=== PATIENT | male | born 1940 | race Caucasian/White ===

== ENCOUNTER 2020-03-13 17:00 | Observation (INO) | payer MEDICARE, SELFPAY ==
--- NOTE | 2020-03-13 | EEG_ITS ---
This is a 16-channel EEG with an EKG lead. The patient is reported awake and confused during the tracing. Background EEG rhythm is low amplitude, mostly in theta range with no obvious asymmetry or paroxysmal tendency. Photic stimulation does not produce any significant abnormality. Hyperventilation is not performed. Cardiac lead revealed bradycardia. No definite sharp wave spikes or paroxysmal tendencies noted. IMPRESSION: Unremarkable EEG. MD MAYLIN Lane/JOLIE / [id number]
--- NOTE | 2020-03-13 | ECG_ITS ---
Test Reason : REPEAT Blood Pressure : / mmHG Vent. Rate : 053 BPM Atrial Rate : 053 BPM P-R Int : 166 ms QRS Dur : 072 ms QT Int : 470 ms P-R-T Axes : 065 009 016 degrees QTc Int : 441 ms Sinus bradycardia Low voltage QRS Nonspecific ST abnormality Abnormal ECG When compared with ECG of 13-MAR-2020 17:24, No significant changes seen Referred By: Robert Arredondo Electronically Signed By:NORMA GONGORA
--- NOTE | ~2020-03-13 | CT_ITS ---
EXAMINATION: CT HEAD WITHOUT CONTRAST CLINICAL INFORMATION: Altered mental status. COMPARISON: 12/08/2016 TECHNIQUE: Contiguous axial imaging was performed from the skull base to vertex without intravenous administration of contrast. This CT examination was performed using dose optimization techniques as appropriate, variously including the following: *Automated exposure control *Adjustment of mA and/or kV according to patient size (this includes techniques or standardized protocols for targeted exams where dose is matched to indication/reason for exam; i.e. extremities or head) *Use of iterative reconstruction technique DLP: 789 mGy-cm FINDINGS: There is no evidence of acute intracranial hemorrhage or territorial infarction. No abnormal mass effect or midline shift is seen. Lynch to white matter differentiation is well preserved. No extra-axial fluid collections are identified. There is generalized brain parenchymal volume loss with commensurate prominence of the ventricular system, cortical sulci and fissures with interval progression since prior. Mild background chronic white matter small vessel ischemic changes. The osseous structures and soft tissues are normal. The mastoid air cells and visualized portions of the paranasal sinuses are well aerated. CT/CT head/brain wo con IMPRESSION: * No acute intracranial pathology. * Marked progressive generalized brain parenchymal volume loss and mild chronic white matter small vessel ischemic changes.
--- NOTE | ~2020-03-13 | XR_ITS ---
EXAMINATION: XR CHEST CLINICAL INFORMATION: Altered mental status COMPARISON: Chest radiograph 12/08/2016 TECHNIQUE: Frontal view of the chest was obtained. FINDINGS: Normal color and mediastinal silhouette. Mild hypoinflation of the lungs. No focal consolidation. No pleural effusion or pneumothorax. No acute osseous abnormality. XR/XR chest 1V IMPRESSION: No acute disease within the chest.
--- NOTE | 2020-03-13 17:02 | ED_ITS ---
HPI - Altered Mental Status General Chief Complaint: Syncope Stated Complaint: Episode of unresponsiveness Time Seen by Provider: 03/13/20 17:01 Source: EMS Mode of arrival: EMS Limitations: no limitations History of Present Illness HPI narrative: Patient with history of dementia Parkinson disease brought by EMS for period of unresponsiveness when he was sitting on the toilet. Etiology is not very clear patient did not move his bowels at this time he is awake alert communicating slowly without any focal deficit. Patient does have a similar history in 2017 when he was brought to the hospital had a MRI CT scan and carotid Doppler negative for any acute ischemic stroke no history of seizures in the past patient denies any chest pain or palpitation complaint: confusion and decreased responsiveness Onset (ago): minute(s) Related Data Home Medications Medication Instructions Recorded Confirmed B12 500 mg PO DAILY 03/13/20 03/13/20 aspirin 81 mg PO DAILY 03/13/20 03/13/20 atorvastatin 20 mg PO BEDTIME 03/13/20 03/13/20 carbidopa-levodopa 1 tab PO QID 03/13/20 03/13/20 donepezil 20 mg PO BEDTIME 03/13/20 03/13/20 gabapentin 500 mg PO BEDTIME 03/13/20 03/13/20 melatonin 3 mg PO BEDTIME 03/13/20 03/13/20 memantine 5 mg PO BID 03/13/20 03/13/20 sertraline 1 tab PO DAILY 03/13/20 03/13/20 sertraline 50 mg PO DAILY 03/13/20 03/13/20 Allergies Allergy/AdvReac Type Severity Reaction Status Date / Time No Known Allergies Allergy Unverified 10/23/19 14:59 [No Known Allergies*] Review of Systems Review of Systems: Yes Unobtainable due to mental status (Confusion) Neurologic: Reports confusion Psychiatric: Psychiatric: Reports confusion [facility] Past Medical History Medical History Dementia Dyslipidemia Parkinsons disease Psoriasis Renal stone Social History Social History Alcohol intake: unknown Smoking Status: Unknown if ever smoked Use of substances other than those prescribed or required for medical reasons: Unable to respond Advance Directives: No Advance Directives Information Provided: No Physical Exam Vital Signs: Vital Signs: Last Vital Signs Temp 98.5 F 03/13/20 22:05 Pulse 55 03/13/20 22:05 Resp 13 03/13/20 22:05 BP 144/44 H 03/13/20 22:05 Pulse Ox 97 03/13/20 22:05 Body Mass Index 24.4 Const: General: comfortable, no acute distress, confusion and poor hygiene Nutritional Appearance: well nourished Orientation/consciousness: oriented to person, oriented to place and confusion HENMT: Head: Yes normocephalic and Yes atraumatic Ears: hearing grossly n ormal bilaterally General nose exam: Normal external nose present Face and sinus: Yes normal facial exam Mouth: Normal oral and palatal mucosa present Eyes: General: appearance normal, both eyes and all related structures Neck: Neck: Yes normal visual inspection and Yes no meningeal signs Chest: Chest palpation & inspection: normal palpation of entire chest wall Resp: Effort & Inspection: normal respiratory effort Auscultation: clear to auscultation bilaterally, no crackles, no rales and no rhonchi Cardio: Jugular venous distension: no JVD Rate: regular rate Rhythm: regular rhythm Heart sounds: S1 normal heart sound present and S2 normal heart sound present Peripheral pulses: Peripheral pulses 2+ throughout GI: Inspection: Yes normal to inspection Palpation (GI): Soft to palpation, nontender and no guarding Percussion: Yes normal to percussion Auscultation: normal bowel sounds : General: Yes no CVA tenderness Back/Spine/Pelvis: Back: no CVA tenderness Thoracic/Lumbar Spine: No thoracic spinal tenderness and No lumbar spinal tenderness Skin: General skin exam: no rashes or lesions noted Neuro: General: oriented to person, oriented to place, tone normal, moves all extremities, no meningeal signs, no focal motor deficits, CN's II-XI intact bilaterally and confusion Extrem: General: Yes normal to inspection, Yes no pedal edema and Yes no calf tenderness MDM - Altered Mental Status MDM Narrative Medical decision making narrative: Patient's syncope episode etiology is not very clear patient has similar episode in the past last episode was 2017 when workup was negative also workup showed she has a UTI with no signs of sepsis at this time will admit patient for syncope and UTI will give IV Rocephin CT scan head negative for acute severe Differential Diagnosis Differential diagnosis: Likely altered mental status and hyponatremia Medical Records Attestation: I reviewed the patient's medical records. Lab Data Attestation: I reviewed the patient's lab results. Result diagrams: 03/13/20 17:45 03/13/20 17:45 Labs: Lab Results 03/13/20 03/13/20 03/13/20 Range/Units 17:15 17:45 17:45 WBC 4.8 (4.8-10.8) X10*3/uL RBC 3.18 L (4.60-5.80) X10*6/uL Hgb 11.5 L (14.0-18.0) g/dl Hct 35.3 L (42-52) % MCV 111.0 H (80-98) fL MCH 36.2 H (27.0-33.0) pg MCHC 32.6 (31.0-36.0) g/dl RDW 15.6 (11.0-16.0) % Plt Count 533 H (160-400) X10*3/uL MPV 10.4 (9.4-12.4) fL Immature Gran % (Auto) 0.2 (0.0-0.4) % Neut % (Auto) 73.0 (45-73) % Lymph % (Auto) 18.2 L (20-40) % [place] % (Auto) 7.3 (2-11) % Eos % (Auto) 1.3 (0-4) % Baso % (Auto) 0.0 (0-2) % Lymph # (Auto) 0.9 L (1.2-4.9) X10*3/uL [place] # (Auto) 0.4 (0.1-1.2) X10*3/uL Eos # (Auto) 0.1 (0.0-0.4) X10*3/uL Baso # (Auto) 0.0 (0.0-0.2) X10*3/uL Abs Immat Gran (auto) 0.01 (0.00-0.03) X10*3/uL Absolute Neuts (auto) 3.5 (2.0-8.3) X10*3/uL Absolute Nucleated RBC 0.000 (0.0-0.012) X10*3/uL Nucleated RBC % (auto) 0.0 (0.0-0.2) /100WBC PT 13.5 H (10.8-13.0) SEC INR 1.1 (0.9-1.1) APTT 28.2 (24.1-38.0) SEC Sodium (135-145) mmol/L Potassium (3.3-5.1) mmol/L Chloride (96-108) mmol/L Carbon Dioxide (22-29) mmol/L Anion Gap (12-20) BUN (9-16) mg/dL Creatinine (0.5-1.4) mg/dL Estim Creat Clear Calc Estimated GFR POC Glucose 142 H (60-115) mg/dL Random Glucose (60-115) mg/dL Lactic Acid (0.5-2.0) mmol/L Calcium (8.4-10.2) mg/dL Total Bilirubin (0.0-1.0) mg/dL Direct Bilirubin (0.0-0.5) mg/dL AST (5-37) U/L ALT (0-40) U/L Alkaline Phosphatase (39-117) U/L Troponin I High Sens (<3.5-35.0) ng/L Total Protein (6.5-8.0) g/dL Albumin (3.5-5.0) g/dL Urine Color Urine Appearance Urine pH (5.0-8.0) Ur Specific [place] (1.005-1.025) Urine Protein (NEG-TRACE) MG/DL Urine Glucose (UA) (NEG) MG/DL Urine Ketones (NEG) MG/DL Urine Blood (NEG) Urine Nitrite (NEG) Ur Leukocyte Esterase (NEG) Urine RBC (0) /HPF Urine WBC (0-4) /HPF Ur Squamous Epith Cells /LPF Urine Bacteria /LPF Urine Mucus /LPF COVID-19 (KASIE) (Negative) COVID-19 Clin Com 03/13/20 03/13/20 03/13/20 Range/Units 17:45 17:45 17:45 WBC (4.8-10.8) X10*3/uL RBC (4.60-5.80) X10*6/uL Hgb (14.0-18.0) g/dl Hct (42-52) % MCV (80-98) fL MCH (27.0-33.0) pg MCHC (31.0-36.0) g/dl RDW (11.0-16.0) % Plt Count (160-400) X10*3/uL MPV (9.4-12.4) fL Immature Gran % (Auto) (0.0-0.4) % Neut % (Auto) (45-73) % Lymph % (Auto) (20-40) % [place] % (Auto) (2-11) % Eos % (Auto) (0-4) % Baso % (Auto) (0-2) % Lymph # (Auto) (1.2-4.9) X10*3/uL [place] # (Auto) (0.1-1.2) X10*3/uL Eos # (Auto) (0.0-0.4) X10*3/uL Baso # (Auto) (0.0-0.2) X10*3/uL Abs Immat Gran (auto) (0.00-0.03) X10*3/uL Absolute Neuts (auto) (2.0-8.3) X10*3/uL Absolute Nucleated RBC (0.0-0.012) X10*3/uL Nucleated RBC % (auto) (0.0-0.2) /100WBC PT (10.8-13.0) SEC INR (0.9-1.1) APTT (24.1-38.0) SEC Sodium 141 (135-145) mmol/L Potassium 4.7 (3.3-5.1) mmol/L Chloride 104 (96-108) mmol/L Carbon Dioxide 26 (22-29) mmol/L Anion Gap 16 (12-20) BUN 19 H (9-16) mg/dL Creatinine 0.97 (0.5-1.4) mg/dL Estim Creat Clear Calc 62.7 Estimated GFR > 60 POC Glucose (60-115) mg/dL Random Glucose 141 H (60-115) mg/dL Lactic Acid (0.5-2.0) mmol/L Calcium 8.1 L (8.4-10.2) mg/dL Total Bilirubin 0.4 (0.0-1.0) mg/dL Direct Bilirubin 0.2 (0.0-0.5) mg/dL AST 21 (5-37) U/L ALT 16 (0-40) U/L Alkaline Phosphatase 113 (39-117) U/L Troponin I High Sens < 3.5 (<3.5-35.0) ng/L Total Protein 6.2 L (6.5-8.0) g/dL Albumin 3.7 (3.5-5.0) g/dL Urine Color Urine Appearance Urine pH (5.0-8.0) Ur Specific [place] (1.005-1.025) Urine Protein (NEG-TRACE) MG/DL Urine Glucose (UA) (NEG) MG/DL Urine Ketones (NEG) MG/DL Urine Blood (NEG) Urine Nitrite (NEG) Ur Leukocyte Esterase (NEG) Urine RBC (0) /HPF Urine WBC (0-4) /HPF Ur Squamous Epith Cells /LPF Urine Bacteria /LPF Urine Mucus /LPF COVID-19 (KASIE) Negative (Negative) COVID-19 Clin Com See Note 03/13/20 03/13/20 Range/Units 17:59 19:04 WBC (4.8-10.8) X10*3/uL RBC (4.60-5.80) X10*6/uL Hgb (14.0-18.0) g/dl Hct (42-52) % MCV (80-98) fL MCH (27.0-33.0) pg MCHC (31.0-36.0) g/dl RDW (11.0-16.0) % Plt Count (160-400) X10*3/uL MPV (9.4-12.4) fL Immature Gran % (Auto) (0.0-0.4) % Neut % (Auto) (45-73) % Lymph % (Auto) (20-40) % [place] % (Auto) (2-11) % Eos % (Auto) (0-4) % Baso % (Auto) (0-2) % Lymph # (Auto) (1.2-4.9) X10*3/uL [place] # (Auto) (0.1-1.2) X10*3/uL Eos # (Auto) (0.0-0.4) X10*3/uL Baso # (Auto) (0.0-0.2) X10*3/uL Abs Immat Gran (auto) (0.00-0.03) X10*3/uL Absolute Neuts (auto) (2.0-8.3) X10*3/uL Absolute Nucleated RBC (0.0-0.012) X10*3/uL Nucleated RBC % (auto) (0.0-0.2) /100WBC PT (10.8-13.0) SEC INR (0.9-1.1) APTT (24.1-38.0) SEC Sodium (135-145) mmol/L Potassium (3.3-5.1) mmol/L Chloride (96-108) mmol/L Carbon Dioxide (22-29) mmol/L Anion Gap (12-20) BUN (9-16) mg/dL Creatinine (0.5-1.4) mg/dL Estim Creat Clear Calc Estimated GFR POC Glucose (60-115) mg/dL Random Glucose (60-115) mg/dL Lactic Acid 1.6 (0.5-2.0) mmol/L Calcium (8.4-10.2) mg/dL Total Bilirubin (0.0-1.0) mg/dL Direct Bilirubin (0.0-0.5) mg/dL AST (5-37) U/L ALT (0-40) U/L Alkaline Phosphatase (39-117) U/L Troponin I High Sens (<3.5-35.0) ng/L Total Protein (6.5-8.0) g/dL Albumin (3.5-5.0) g/dL Urine Color YELLOW Urine Appearance CLOUDY Urine pH 6.0 (5.0-8.0) Ur Specific [place] >= 1.030 H (1.005-1.025) Urine Protein 2+ H (NEG-TRACE) MG/DL Urine Glucose (UA) NEG (NEG) MG/DL Urine Ketones 5 (NEG) MG/DL Urine Blood TRACE (NEG) Urine Nitrite POS H (NEG) Ur Leukocyte Esterase TRACE H (NEG) Urine RBC 0-2 (0) /HPF Urine WBC 30-49 H (0-4) /HPF Ur Squamous Epith Cells 1+ /LPF Urine Bacteria 1+ /LPF Urine Mucus 3+ /LPF COVID-19 (KASIE) (Negative) COVID-19 Clin Com ECG Data ECG #1: Attestation: I personally reviewed and interpreted this ECG as follows: Interpretation: Sinus bradycardia heart rate 53 beats per minute nonspecific ST T wave changes normal intervals no acute ischemia Discharge Plan Discharge Clinical Impression: Syncope Qualifiers: Syncope type: unspecified Qualified Code(s): R55 - Syncope and collapse UTI (urinary tract infection) Qualifiers: Urinary tract infection type: acute cystitis Hematuria presence: without hematuria Qualified Code(s): N30.00 - Acute cystitis without hematuria Patient Disposition: Admitted As Inpatient
[2020-03-13 17:07] VITALS: BP 102/62; BP 122/48; PULSE 54; PULSE 58; RESP 18; O2SAT 90; O2SAT 93; BMI 24.4
--- NOTE | 2020-03-13 17:11 | ECG_ITS ---
Test Reason : SYNCOPY Blood Pressure : / mmHG Vent. Rate : 050 BPM Atrial Rate : 049 BPM P-R Int : 000 ms QRS Dur : 086 ms QT Int : 504 ms P-R-T Axes : 000 009 028 degrees QTc Int : 459 ms Baseline artifact Likely sinus rhythm Nonspecific ST abnormality Abnormal ECG When compared with ECG of 08-DEC-2016 10:11, No significant changes seen Referred By: Beltran Louis Electronically Signed By:NORMA GONGORA
[2020-03-13 17:15] VITALS: BP 122/48; PULSE 52; RESP 16; TEMP 36.3; O2SAT 95
[2020-03-13 17:24] VITALS: PULSE 50; O2SAT 95
[2020-03-13 17:26] LABS: Glucose, Whole Blood 142 mg/dL (60-115)
[2020-03-13] MEDS: 0.9 % Sodium Chloride 1,000 ML 999 ML IVCONT (17:30)
[2020-03-13 17:53] LABS: MANUAL DIFF FLAG NO
[2020-03-13 17:54] LABS: Eosinophils Absolute Auto 0.1 X10*3/uL (0.0-0.4); Eosinophils Percent Auto 1.3 % (0-4); Hematocrit 35.3 % (42-52); Hemoglobin 11.5 g/dl (14.0-18.0); Imm Gran Abs Auto 0.01 X10*3/uL (0.00-0.03); Imm Gran Pct Auto 0.2 % (0.0-0.4); Lymphocytes Absolute Auto 0.9 X10*3/uL (1.2-4.9); Lymphocytes Percent Auto 18.2 % (20-40); Mean Corpuscular HGB Conc 32.6 g/dl (31.0-36.0); Mean Corpuscular Hemoglobin 36.2 pg (27.0-33.0); Mean Platelet Volume 10.4 fL (9.4-12.4); Monocytes Absolute Auto 0.4 X10*3/uL (0.1-1.2); Monocytes Percent Auto 7.3 % (2-11); Neutrophils Absolute Auto 3.5 X10*3/uL (2.0-8.3); Platelet Count 533 X10*3/uL (160-400); Red Blood Count 3.18 X10*6/uL (4.60-5.80); Red Cell Distribution Width 15.6 % (11.0-16.0); White Blood Count 4.8 X10*3/uL (4.8-10.8)
[2020-03-13 18:02] LABS: INTERNATIONAL NORM RATIO 1.1 (0.9-1.1); Prothrombin Time 13.5 SEC (10.8-13.0)
[2020-03-13 18:03] VITALS: BP 132/72; PULSE 60; RESP 16; TEMP 36.4; O2SAT 96
[2020-03-13 18:04] LABS: Glucose Urine UA NEG (NEG); Leukocyte Esterase Urine TRACE (NEG); Nitrite Urine POS (NEG); Specific Gravity - Urine >= 1.030 (1.005-1.025); UACC Culture Trigger YES; Urine Blood TRACE (NEG); Urine Ketones 5 MG/DL (NEG); Urine Protein 2+ MG/DL (NEG-TRACE)
[2020-03-13 18:04] LABS: Partial Thromboplastin Time 28.2 SEC (24.1-38.0)
[2020-03-13 18:05] LABS: Appearance Urine CLOUDY; Color Urine YELLOW
[2020-03-13 18:10] LABS: COVID-19 Test Negative (Negative)
[2020-03-13 18:13] LABS: Bacteria Urine 1+ /LPF; Mucus Urine 3+ /LPF; RBC Urine 0-2 /HPF (0); Squamous Epithelial Cell Urine 1+ /LPF; WBC Urine 30-49 /HPF (0-4)
[2020-03-13 18:17] LABS: Alanine Aminotransferase 16 U/L (0-40); Albumin Level 3.7 g/dL (3.5-5.0); Alkaline Phosphatase 113 U/L (39-117); Anion Gap 16 (12-20); Aspartate Amino Transferase 21 U/L (5-37); Bilirubin Direct 0.2 mg/dL (0.0-0.5); Bilirubin Total 0.4 mg/dL (0.0-1.0); Blood Urea Nitrogen 19 mg/dL (9-16); Calcium 8.1 mg/dL (8.4-10.2); Carbon Dioxide 26 mmol/L (22-29); Chloride 104 mmol/L (96-108); Creatinine Clr Calc Pharmacy 62.7; Estimated Glomerular Filt Rate > 60; Glucose Random 141 mg/dL (60-115); Potassium 4.7 mmol/L (3.3-5.1); Sodium 141 mmol/L (135-145); Total Protein 6.2 g/dL (6.5-8.0)
[2020-03-13 18:21] LABS: Troponin-I High Sensitivity < 3.5 ng/L (<3.5-35.0)
[2020-03-13] MEDS: cefTRIAXone sodium 1 GM in 0.9 % Sodium Chloride 50 ML IV (19:13)
[2020-03-13 19:39] LABS: Lactic Acid 1.6 mmol/L (0.5-2.0)
[2020-03-13 20:20] VITALS: BP 123/49; PULSE 63; RESP 14; O2SAT 97
--- NOTE | 2020-03-13 21:23 | P.HPHOSP_ITS ---
History of Present Illness Date of Service: 03/13/20 Chief Complaint: Syncope [age] old male with a past medical history of, dementia, Parkinson's disease psoriasis history of calculi, remote history of syncope, presented the hospital today with a chief complaint of unresponsive episode Most of the history obtained from the patient's and son. Family reported that patient was good until yesterday and today he had increased generalized weakness and when they tried to take him to the bathroom for bowel movement patient had an episode of brief unresponsiveness he was drooling from his mouth eyes were rolling back; had baseline body shakes from his Parkinson. Denied any fever chills. Mentioned that patient usually oriented to self. Family denies any fall Denies any chest pain palpitations lightheadedness or dizziness. Denies any nausea vomiting or diarrhea. Denies any focal weakness. Review of all other systems is negative except mentioned above ER course: Per ER team patient exam was nonfocal; muscle could neck exam was benign; CT head showed no acute findings. EKG was nonischemic. Troponin was negative. [facility] Medical History Dementia Dyslipidemia Parkinsons disease Psoriasis Renal stone Social History Alcohol intake: unknown Smoking Status: Unknown if ever smoked Use of substances other than those prescribed or required for medical reasons: Unable to respond Advance Directives: No Advance Directives Information Provided: No Meds Allergies Allergy/AdvReac Type Severity Reaction Status Date / Time No Known Allergies Allergy Unverified 10/23/19 14:59 [No Known Allergies*] Home Medications Medication Instructions Recorded Confirmed Type B12 500 mg PO DAILY 03/13/20 03/13/20 History aspirin 81 mg PO DAILY 03/13/20 03/13/20 History atorvastatin 20 mg PO BEDTIME 03/13/20 03/13/20 History carbidopa-levodopa 1 tab PO QID 03/13/20 03/13/20 History donepezil 20 mg PO BEDTIME 03/13/20 03/13/20 History gabapentin 500 mg PO BEDTIME 03/13/20 03/13/20 History melatonin 3 mg PO BEDTIME 03/13/20 03/13/20 History memantine 5 mg PO BID 03/13/20 03/13/20 History sertraline 1 tab PO DAILY 03/13/20 03/13/20 History sertraline 50 mg PO DAILY 03/13/20 03/13/20 History Physical Exam Vital Signs and Narrative: Vital Signs: Last Vital Signs Temp 97.6 F 03/13/20 18:03 Pulse 63 03/13/20 20:20 Resp 14 03/13/20 20:20 BP 123/49 L 03/13/20 20:20 Pulse Ox 97 03/13/20 20:20 Body Mass Index 24.4 Gen: Appears be in no acute distress HEENT: NCAT, Moist mucosa. Pulmonary: Vesicular breath sounds, fair air entry CVS: Normal S1-S2 Abdomen: BS+, Soft, Nontender Extremities: Warm well perfused Neuro: Alert and awake. Grossly nonfocal Results Labs CBC and Chem 7: 03/13/20 17:45 03/13/20 17:45 Labs: Laboratory Results - last 24 hr 03/13/20 03/13/20 03/13/20 17:15 17:45 17:45 MCV 111.0 H MCH 36.2 H MCHC 32.6 RDW 15.6 Plt Count 533 H MPV 10.4 Immature Gran % (Auto) 0.2 Neut % (Auto) 73.0 Lymph % (Auto) 18.2 L [place] % (Auto) 7.3 Eos % (Auto) 1.3 Baso % (Auto) 0.0 Lymph # (Auto) 0.9 L [place] # (Auto) 0.4 Eos # (Auto) 0.1 Baso # (Auto) 0.0 Abs Immat Gran (auto) 0.01 Absolute Neuts (auto) 3.5 Absolute Nucleated RBC 0.000 Nucleated RBC % (auto) 0.0 PT 13.5 H INR 1.1 APTT 28.2 Anion Gap Estim Creat Clear Calc Estimated GFR POC Glucose 142 H Random Glucose Lactic Acid Calcium Total Bilirubin Direct Bilirubin AST ALT Alkaline Phosphatase Troponin I High Sens Total Protein Albumin Urine Color Urine Appearance Urine pH Ur Specific [place] Urine Protein Urine Glucose (UA) Urine Ketones Urine Blood Urine Nitrite Ur Leukocyte Esterase Urine RBC Urine WBC Ur Squamous Epith Cells Urine Bacteria Urine Mucus COVID-19 (KASIE) COVID-19 Clin Com 03/13/20 03/13/20 03/13/20 17:45 17:45 17:45 MCV MCH MCHC RDW Plt Count MPV Immature Gran % (Auto) Neut % (Auto) Lymph % (Auto) [place] % (Auto) Eos % (Auto) Baso % (Auto) Lymph # (Auto) [place] # (Auto) Eos # (Auto) Baso # (Auto) Abs Immat Gran (auto) Absolute Neuts (auto) Absolute Nucleated RBC Nucleated RBC % (auto) PT INR APTT Anion Gap 16 Estim Creat Clear Calc 62.7 Estimated GFR > 60 POC Glucose Random Glucose 141 H Lactic Acid Calcium 8.1 L Total Bilirubin 0.4 Direct Bilirubin 0.2 AST 21 ALT 16 Alkaline Phosphatase 113 Troponin I High Sens < 3.5 Total Protein 6.2 L Albumin 3.7 Urine Color Urine Appearance Urine pH Ur Specific [place] Urine Protein Urine Glucose (UA) Urine Ketones Urine Blood Urine Nitrite Ur Leukocyte Esterase Urine RBC Urine WBC Ur Squamous Epith Cells Urine Bacteria Urine Mucus COVID-19 (KASIE) Negative COVID-19 Clin Com See Note 03/13/20 03/13/20 17:59 19:04 MCV MCH MCHC RDW Plt Count MPV Immature Gran % (Auto) Neut % (Auto) Lymph % (Auto) [place] % (Auto) Eos % (Auto) Baso % (Auto) Lymph # (Auto) [place] # (Auto) Eos # (Auto) Baso # (Auto) Abs Immat Gran (auto) Absolute Neuts (auto) Absolute Nucleated RBC Nucleated RBC % (auto) PT INR APTT Anion Gap Estim Creat Clear Calc Estimated GFR POC Glucose Random Glucose Lactic Acid 1.6 Calcium Total Bilirubin Direct Bilirubin AST ALT Alkaline Phosphatase Troponin I High Sens Total Protein Albumin Urine Color YELLOW Urine Appearance CLOUDY Urine pH 6.0 Ur Specific [place] >= 1.030 H Urine Protein 2+ H Urine Glucose (UA) NEG Urine Ketones 5 Urine Blood TRACE Urine Nitrite POS H Ur Leukocyte Esterase TRACE H Urine RBC 0-2 Urine WBC 30-49 H Ur Squamous Epith Cells 1+ Urine Bacteria 1+ Urine Mucus 3+ COVID-19 (KASIE) COVID-19 Clin Com Imaging Radiologist's Impressions: Impressions Chest X-Ray 03/13/20 17:11 IMPRESSION: No acute disease within the chest. Head CT 03/13/20 17:12 IMPRESSION: * No acute intracranial pathology. * Marked progressive generalized brain parenchymal volume loss and mild chronic white matter small vessel ischemic changes. Assessment and Plan (1) Syncope: Status: Acute 79-year-old male with a past medical history hyperlipidemia, dementia, Parkinson's disease, depression presented to the hospital with a chief complaint of unresponsive episode. Noted to have UTI. Unresponsive episode: Patient has drooling from his mouth and eyes rolling back during the episode. Syncope versus seizure. Exam nonfocal. CT head showed no acute findings. Fall precautions. PT/OT. Will also obtain an echocardiogram. Patient had similar episode in the past-was seen by Neurology-will re-consult Neurology for further recommendations. EKG was nonischemic, troponin was negative; follow-up troponin pending Eeg orthostatic vitals UTI: Continue ceftriaxone. Follow up cultures. Parkinson's disease: Continue home carbidopa levodopa History of dementia:: Current mental status at baseline off oriented to self. Continue home donepezil and memantine. History of depression: Continue home sertraline History of hyperlipidemia: Continue statin Ambulation: Patient is mostly wheelchair-bound as per the patient's and he intermittently walks with the help of support. DVT prophylaxis: SCD boots Diet: Speech and swallow eval Full code-spoke to the patient's family
[2020-03-13 22:05] VITALS: BP 144/44; PULSE 55; RESP 13; TEMP 36.9; O2SAT 97
[2020-03-13 22:48] LABS: Troponin-I High Sensitivity < 3.5 ng/L (<3.5-35.0)
[2020-03-14] VITALS (9 sets, daily range): BP systolic 106–147; BP diastolic 42–91; PULSE 54–73; RESP 14–18; TEMP 36.3–36.9; O2SAT 92–99
--- NOTE | 2020-03-14 01:04 | PC.NURSE ---
pt incontinent of urine, complete bed change and Diego. jadon care completed and pt repositioned on the ride side. bed is lowered, call madison in reach and fall red socks on. Pt is a full assist
--- NOTE | 2020-03-14 05:48 | PC.NURSE ---
Pt incontinent of urine, completed bed change and attire. pt repositioned and condom cath placed
[2020-03-14 07:24] LABS: MANUAL DIFF FLAG NO
[2020-03-14 07:25] LABS: Basophils Percent Auto 0.4 % (0-2); Eosinophils Percent Auto 0.6 % (0-4); Hematocrit 34.3 % (42-52); Hemoglobin 11.2 g/dl (14.0-18.0); Imm Gran Abs Auto 0.02 X10*3/uL (0.00-0.03); Imm Gran Pct Auto 0.4 % (0.0-0.4); Lymphocytes Absolute Auto 1.1 X10*3/uL (1.2-4.9); Lymphocytes Percent Auto 20.4 % (20-40); Mean Corpuscular HGB Conc 32.7 g/dl (31.0-36.0); Mean Corpuscular Hemoglobin 35.7 pg (27.0-33.0); Mean Corpuscular Volume 109.2 fL (80-98); Mean Platelet Volume 10.5 fL (9.4-12.4); Monocytes Absolute Auto 0.5 X10*3/uL (0.1-1.2); Monocytes Percent Auto 8.6 % (2-11); Neutrophils Absolute Auto 3.7 X10*3/uL (2.0-8.3); Neutrophils Percent Auto 69.6 % (45-73); Platelet Count 468 X10*3/uL (160-400); Red Blood Count 3.14 X10*6/uL (4.60-5.80); Red Cell Distribution Width 15.7 % (11.0-16.0); White Blood Count 5.3 X10*3/uL (4.8-10.8)
[2020-03-14 08:02] LABS: Anion Gap 14 (12-20); Blood Urea Nitrogen 14 mg/dL (9-16); Calcium 8.2 mg/dL (8.4-10.2); Carbon Dioxide 26 mmol/L (22-29); Chloride 107 mmol/L (96-108); Creatinine Clr Calc Pharmacy 84.5; Estimated Glomerular Filt Rate > 60; Glucose Random 105 mg/dL (60-115); Potassium 4.5 mmol/L (3.3-5.1); Sodium 142 mmol/L (135-145)
--- NOTE | 2020-03-14 08:08 | PC.NURSE ---
report taken from chen chin pt appears to be sleeping in bed at this time, rr even/unlabored. breakfast tray at bedside. wctm.
--- NOTE | 2020-03-14 09:31 | HO.PM.IMPN ---
Subjective Subjective Date of Service: 03/14/20 Interval History: Patient seen and examined at bedside, Patient remains confused Review of Systems Review of Systems: Yes Unobtainable due to mental condition (Dementia) Neurologic Neurologic: Reports confusion Psychiatric Psychiatric: Reports confusion Physical Exam Vital Signs: Vital Signs: Last Vital Signs Temp 98.4 F 03/14/20 08:19 Pulse 60 03/14/20 08:19 Resp 18 03/14/20 08:19 BP 118/47 L 03/14/20 08:19 Pulse Ox 98 03/14/20 08:19 Body Mass Index 24.4 Const: General: comfortable, no acute distress, confusion and poor hygiene Orientation/consciousness: confusion Resp: Effort & Inspection: normal respiratory effort Auscultation: clear to auscultation bilaterally, no crackles, no rales and no rhonchi Cardio: Jugular venous distension: no JVD Rate: regular rate Rhythm: regular rhythm Heart sounds: S1 normal heart sound present and S2 normal heart sound present Peripheral pulses: Peripheral pulses 2+ throughout GI: Inspection: Yes normal to inspection Palpation (GI): Soft to palpation, nontender and no guarding Percussion: Yes normal to percussion Auscultation: normal bowel sounds : General: Yes no CVA tenderness Back/Spine/Pelvis: Back: no CVA tenderness Thoracic/Lumbar Spine: No thoracic spinal tenderness and No lumbar spinal tenderness Skin: General skin exam: no rashes or lesions noted Neuro: General: moves all extremities, no focal motor deficits and confusion Extrem: General: Yes normal to inspection, Yes no pedal edema and Yes no calf tenderness Objective Data Current Medications Generic Name Dose Route Start Last Admin Trade Name Eva PRN Reason Stop Dose Admin Aspirin 81 mg 03/14/20 09:00 Aspirin Enteric Coated 81 Mg Tablet. PO DAILY [facility] Atorvastatin Calcium 20 mg 03/14/20 21:00 Atorvastatin Calcium 20 Mg Tablet PO BEDTIME MUNA Carbidopa/Levodopa 1 tab 03/14/20 09:00 Carbidopa/Levodopa 25/100 Tablet PO QID [facility] Cyanocobalamin 500 mcg 03/14/20 09:00 Cyanocobalamin (Vitamin B-12) 500 Mcg Tablet PO DAILY [facility] Donepezil HCl 20 mg 03/14/20 21:00 Donepezil Hcl 5 Mg Tablet PO BEDTIME [facility] Gabapentin 400 mg 03/14/20 21:00 Gabapentin 400 Mg Capsule PO BEDTIME [facility] Gabapentin 100 mg 03/14/20 21:00 Gabapentin 100 Mg Capsule PO BEDTIME MUNA Ceftriaxone Sodium 1 gm/ 50 mls @ 100 mls/hr 03/14/20 19:00 Sodium Chloride IV Q24H MUNA Melatonin 3 mg 03/14/20 21:00 Melatonin 3 Mg Tablet PO BEDTIME MUNA Memantine 5 mg 03/14/20 09:00 Memantine Hcl 5 Mg Tablet PO BID [facility] Sertraline HCl 50 mg 03/14/20 09:00 Sertraline Hcl 50 Mg Tablet PO DAILY [facility]NA Sodium Chloride 3 ml 03/14/20 00:00 03/14/20 08:24 0.9 % Sodium Chloride Flush 3 Ml Syringe IVFLUSH Not Given QSHIFT [facility] Labs CBC & Chem 7: 03/14/20 07:14 03/14/20 07:15 Microbiology Microbiology Results: Microbiology 03/13/20 17:58 Urine clean catch - Santiago Catheter Urine Culture - Preliminary No growth to date. Assessment and Plan (1) Syncope: Status: Acute Assessment and Plan: 79-year-old male with a past medical history hyperlipidemia, dementia, Parkinson's disease, depression presented to the hospital with a chief complaint of unresponsive episode. Noted to have UTI. Unresponsive episode rule out seizure versus syncope CT head showed no acute findings. Neurology consult pending Monitor on telemetry Will check orthostatic vitals PT evaluation UTI: Continue ceftriaxone Follow up cultures. Parkinson's disease Continue carbidopa levodopa History of dementia Continue donepezil and memantine History of depression Continue home sertraline History of hyperlipidemia: Continue statin DVT prophylaxis: SCD boots Ambulation: Patient is mostly wheelchair-bound as per the patient's and he intermittently walks with the help of support.
[2020-03-14] MEDS: Memantine HCl 5 MG TABLET PO ×2 (09:35→20:09)
[2020-03-14] MEDS: Aspirin Enteric Coated 81 MG TABLET.DR PO (09:35)
[2020-03-14] MEDS: Carbidopa/Levodopa 25/100 TABLET 1 TAB PO ×4 (09:35→20:09)
[2020-03-14] MEDS: Sertraline HCL 50 MG TABLET PO (09:35)
--- NOTE | 2020-03-14 09:47 | PC.NURSE ---
morning meds given to pt. per pt son, pt takes medications crushed in apple sauce. pt able to tolerate one sip of water to wet mouth, tolerating multiple spoonfuls of pudding with medication. pt given another sip of water, and spit it out on pt chest. wet durga changed. pt encouraged to keep eating pudding but unsuccessful. wctm.
--- NOTE | 2020-03-14 10:25 | P.CNNE_ITS ---
History of Present Illness Data of Consult Service Date: 03/14/20 Primary Care Provider: Unknown Physician 79 years old man with underlying history of dementia and parkinsonism was brought to hospital with an episode of unresponsiveness. He was unable to provide any meaningful history. Apparently history was obtained from his family who stated that while they were trying to take him to bilateral he had an episode of unresponsiveness with eyes rolling over and drooling. Review of Systems Review of Systems: Unable to answer questions for review of system PMFSH Past Medical History Medical History Dementia Dyslipidemia Parkinsons disease Psoriasis Renal stone Social History Social History Alcohol intake: unknown Smoking Status: Unknown if ever smoked Use of substances other than those prescribed or required for medical reasons: Unable to respond Advance Directives: No Advance Directives Information Provided: No Meds Allergies Allergy/AdvReac Type Severity Reaction Status Date / Time No Known Allergies Allergy Unverified 10/23/19 14:59 [No Known Allergies*] Home Medications Medication Instructions Recorded Confirmed Type B12 500 mg PO DAILY 03/13/20 03/13/20 History aspirin 81 mg PO DAILY 03/13/20 03/13/20 History atorvastatin 20 mg PO BEDTIME 03/13/20 03/13/20 History carbidopa-levodopa 1 tab PO QID 03/13/20 03/13/20 History donepezil 20 mg PO BEDTIME 03/13/20 03/13/20 History gabapentin 500 mg PO BEDTIME 03/13/20 03/13/20 History melatonin 3 mg PO BEDTIME 03/13/20 03/13/20 History memantine 5 mg PO BID 03/13/20 03/13/20 History sertraline 1 tab PO DAILY 03/13/20 03/13/20 History sertraline 50 mg PO DAILY 03/13/20 03/13/20 History Physical Exam Vital Signs: Vital Signs: Last Vital Signs Temp 98.4 F 03/14/20 08:19 Pulse 60 03/14/20 08:19 Resp 18 03/14/20 08:19 BP 118/47 L 03/14/20 08:19 Pulse Ox 98 03/14/20 08:19 Body Mass Index 24.4 He was somewhat drowsy but able to make an eye contact and was mumbling and occasionally followed a command but generally speaking it did not. He could not tell me where he was and what was going on and why he was here. His speech was soft and dysarthric. There is no gaze deviation. Visual vanegas were difficult to determine. Face was pendulous but seems symmetrical. Formal strength examination was not possible. Deep tender reflexes were absent. He seemed to have left arm weakness. Results Labs CBC & Chem 7: 03/14/20 07:14 03/14/20 07:15 Labs: Short CBC 03/13/20 03/14/20 Range/Units 17:45 07:14 WBC 4.8 5.3 (4.8-10.8) X10*3/uL Hgb 11.5 L 11.2 L (14.0-18.0) g/dl Hct 35.3 L 34.3 L (42-52) % Plt Count 533 H 468 H (160-400) X10*3/uL BMP 03/13/20 03/14/20 17:45 07:15 Sodium 141 142 Potassium 4.7 4.5 Chloride 104 107 Carbon Dioxide 26 26 BUN 19 H 14 Creatinine 0.97 0.72 Calcium 8.1 L 8.2 L Liver Function 03/13/20 Range/Units 17:45 Total Bilirubin 0.4 (0.0-1.0) mg/dL Direct Bilirubin 0.2 (0.0-0.5) mg/dL AST 21 (5-37) U/L ALT 16 (0-40) U/L Alkaline Phosphatase 113 (39-117) U/L Albumin 3.7 (3.5-5.0) g/dL Urine 03/13/20 Range/Units 17:59 Urine Color YELLOW Urine Appearance CLOUDY Urine pH 6.0 (5.0-8.0) Ur Specific [place] >= 1.030 H (1.005-1.025) Urine Protein 2+ H (NEG-TRACE) MG/DL Urine Glucose (UA) NEG (NEG) MG/DL His non contrasted CT revealed quite severe diffuse cerebral central cortical atrophy. Microbiology Microbiology Results: Microbiology 03/13/20 17:58 Urine clean catch - Santiago Catheter Urine Culture - Preliminary No growth to date. Assessment and Plan (1) Syncope: Qualifiers: Syncope type: unspecified Qualified Code(s): R55 - Syncope and collapse Status: Acute Unclear etiology of an episode of unresponsiveness which might have been triggered by some mild infection but seizure disorder was common in this type of patient. At this time and electroencephalogram is recommended for evaluation. (2) Dementia with parkinsonism: Status: Acute He has quite significant cerebral atrophy resulting in significant dementia with some parkinsonian features. Patient's in this type of situation usually do not respond well to medicines. I would recommend medicines only that would make any significant difference and otherwise comfort measures.
--- NOTE | 2020-03-14 12:15 | PC.NURSE ---
Compression stocking applied, pt resting in bed, no apparent distress. Requested hospital bed. Pending bed assignment.
--- NOTE | 2020-03-14 13:18 | PC.NURSE ---
20g L AC accidentally dislodge while attempting to change jloop- pt b/l arms wrapped in warm towels and will attempt another IV.
[2020-03-14] MEDS: 0.9 % Sodium Chloride Flush 3 ML SYRINGE IVFLUSH (15:27)
--- NOTE | 2020-03-14 16:39 | MHC.HEMONC ---
Patient repositioned and barrier cream applied. Head of bed elevated. Vitals taken. No signs or symptoms of distress.
--- NOTE | 2020-03-14 17:00 | PC.NURSE ---
x1 attempt to give report- awaiting callback
--- NOTE | 2020-03-14 18:15 | MHC.HEMONC ---
Report given to S3 nurse Dasha. Dasha stated no questions or concerns at this time.
[2020-03-14] MEDS: Gabapentin 400 MG CAPSULE PO (20:09)
[2020-03-14] MEDS: Atorvastatin Calcium 20 MG TABLET PO (20:09)
[2020-03-14] MEDS: 0.9 % Sodium Chloride 1,000 ML 75 ML IVCONT (20:09)
[2020-03-14] MEDS: Donepezil HCl 5 MG TABLET 20 MG PO (20:10)
[2020-03-14] MEDS: Gabapentin 100 MG CAPSULE PO (20:10)
[2020-03-14] MEDS: cefTRIAXone sodium 1 GM in 0.9 % Sodium Chloride 50 ML IV (20:11)
[2020-03-14] MEDS: Melatonin 3 MG TABLET PO (21:06)
[2020-03-15] VITALS (7 sets, daily range): BP systolic 116–154; BP diastolic 37–91; PULSE 47–93; RESP 16–18; TEMP 36.3–36.9; O2SAT 92–97
[2020-03-15] MEDS: 0.9 % Sodium Chloride Flush 3 ML SYRINGE IVFLUSH ×4 (00:03→23:41)
--- NOTE | 2020-03-15 07:35 | CA_ITS ---
Transthoracic Echocardiogram Patient (Last, First, Middle): Steevn Montano, Gender: Male Date of : 1940 Age: 79 Procedure Date: 03/15/2020 Procedure Type: Transthoracic Echocardiogram Location: S3E Height: 175.26 cm Weight: 74.84 kg BSA: 1.90 m2 Heart Rate: bpm BP: 154 / 65 mmHg Automotive Maintenance Technician: RAPHAEL Referring MD: Robert Arredondo MD Symptoms: Syncope Study Quality: Fair ECG Rhythm: Sinus Conclusions: - The left ventricular systolic function is hyperdynamic. The visually estimated ejection fraction is >70%. - No obvious valvular pathology seen on this study. Findings Left Ventricle Normal left ventricular cavity size. There is normal left ventricular wall thickness. The left ventricular systolic function is hyperdynamic. The visually estimated ejection fraction is >70%. There is no evidence of regional wall motion abnormalities. Diastolic function is normal for age. Right Ventricle Normal right ventricular cavity size and systolic function. Atria Both atria are normal in size. Aortic Valve There is a normal trileaflet aortic valve. There is no aortic valve stenosis. There is no aortic valve regurgitation. Mitral Valve The mitral valve appears normal. There is trace mitral valve regurgitation. There is no mitral valve stenosis. Pulmonic Valve The pulmonic valve was not well visualized. Tricuspid Valve There is trace tricuspid valve regurgitation. Tricuspid regurgitation envelope is inadequate for calculation of right ventricular systolic pressure. Great Vessels The aortic annulus, sinuses of valsalva, and asc aorta are normal in size. Venous The inferior vena cava was not well visualized. Pericardium/Pleural There is no evidence of pericardial effusion. Prior Study Comparison No prior study available for comparison. Recommendations, Care & Conclusions No obvious valvular pathology seen on this study. Measurements 2D Linear Measurements IVSd: 0.94 0.6-0.9/0.6-1.0 cm LVIDd: 4.94 3.9-5.3/4.2-5.9 cm LVIDd Index: 2.60 2.4-3.2/2.2-3.1 cm/m2 LVIDs: 2.65 2.0-3.6 cm LVPWd: 1.05 0.7-1.1 cm Ao Root: 3.20 2.1-3.5 cm LV Mass: 221.05 67-162/88-224 g LV Mass Index: 116.34 43-95/49-115 g/m2 LVOT Diam: 2.10 3.0+(-)1.3 cm 2D Systolic Function EF 4C: 75.10 >55% Mitral Valve MV Pk E: 0.71 MV PK A: 0.43 MV Decel Time: 204.00 E/A: 1.60 E'Lateral: 8.27 E'Medial: 7.40 E/E' Med: 9.60 E/E' Lat: 8.60 PHT: 60.00 MVA PHT: 3.67 Decel Loíza: 3.47 Aortic Valve AoV Pk Swapnil: 1.14 AoV Pk Grad: 5.00 LVOT LVOT Pk Swapnil: 1.10 LVOT Mn Swapnil: 0.72 LVOT VTI: 0.27 LVOT Pk Grad: 5.00 LVOT Mn Grad: 2.00 LVOT Diam: 2.10 LVOT Area: 3.46 Diastolic Function MV Pk E: 0.71 MV Pk A: 0.43 E/A: 1.60 E'Medial: 7.40 E/E' Med: 9.60 E' Laterial: 8.27 E/E' Lat: 8.60 Great Vessels Aorta Ao Root-2D: 3.20 2.0-3.7 cm Ao Asc: 3.10 2.1-3.4 cm Updated in Other Vendor System with Status of Final Saurav Roman MD electronically signed on 03/15/2020 11:57:22 AM with status of Final
--- NOTE | 2020-03-15 08:48 | MHC.CM.PN ---
pt lives c his in their home. his primarily cares for patient , also a son. pt is primarily WC bound , uses a walker for minimal ambulation. dc plan is most likely return home possibly c vna. rehab potential is not maximized secondary to WC use status, hence creating a question of skilling for STR needs. a PT eval will help c addressing this question. will transport if home. cm to cont. to follow.
[2020-03-15 09:05] LABS: MANUAL DIFF FLAG NO
[2020-03-15 09:13] LABS: Hematocrit 31.4 % (42-52); Hemoglobin 10.2 g/dl (14.0-18.0); Imm Gran Abs Auto 0.01 X10*3/uL (0.00-0.03); Imm Gran Pct Auto 0.2 % (0.0-0.4); Lymphocytes Absolute Auto 0.8 X10*3/uL (1.2-4.9); Lymphocytes Percent Auto 20.5 % (20-40); Mean Corpuscular HGB Conc 32.5 g/dl (31.0-36.0); Mean Corpuscular Hemoglobin 36.2 pg (27.0-33.0); Mean Platelet Volume 10.6 fL (9.4-12.4); Monocytes Absolute Auto 0.3 X10*3/uL (0.1-1.2); Monocytes Percent Auto 7.6 % (2-11); Neutrophils Absolute Auto 2.9 X10*3/uL (2.0-8.3); Neutrophils Percent Auto 70.7 % (45-73); Platelet Count 458 X10*3/uL (160-400); Red Blood Count 2.82 X10*6/uL (4.60-5.80); Red Cell Distribution Width 15.9 % (11.0-16.0); White Blood Count 4.1 X10*3/uL (4.8-10.8)
[2020-03-15 09:18] LABS: Mean Corpuscular Volume 111.3 fL (80-98)
[2020-03-15] MEDS: Cyanocobalamin (Vitamin B-12) 500 MCG TABLET PO (09:33)
[2020-03-15] MEDS: Aspirin Enteric Coated 81 MG TABLET.DR PO (09:33)
[2020-03-15] MEDS: Carbidopa/Levodopa 25/100 TABLET 1 TAB PO ×4 (09:33→20:59)
[2020-03-15] MEDS: Memantine HCl 5 MG TABLET PO ×2 (09:33→20:59)
[2020-03-15] MEDS: Sertraline HCL 50 MG TABLET PO (09:33)
[2020-03-15] MEDS: 0.9 % Sodium Chloride 1,000 ML 75 ML IVCONT ×2 (09:34→23:47)
[2020-03-15 09:43] LABS: Anion Gap 13 (12-20); Blood Urea Nitrogen 15 mg/dL (9-16); Calcium 8.4 mg/dL (8.4-10.2); Carbon Dioxide 27 mmol/L (22-29); Chloride 105 mmol/L (96-108); Creatinine Clr Calc Pharmacy 81.1; Estimated Glomerular Filt Rate > 60; Glucose Random 106 mg/dL (60-115); Sodium 140 mmol/L (135-145)
--- NOTE | 2020-03-15 16:36 | P.PNIM_ITS ---
Subjective Subjective Date of Service: 03/15/20 Interval History: Patient seen and examined at bedside, Patient remains confused Neurologic Neurologic: Reports confusion Psychiatric Psychiatric: Reports confusion Physical Exam Vital Signs: Vital Signs: Last Vital Signs Temp 97.5 F 03/15/20 15:27 Pulse 47 L 03/15/20 15:27 Resp 18 03/15/20 15:27 BP 126/91 H 03/15/20 15:27 Pulse Ox 92 03/15/20 15:27 Body Mass Index 24.4 Const: General: comfortable, no acute distress, confusion and poor hygiene Nutritional Appearance: well nourished Orientation/consciousness: confusion HENMT: Head: Yes normocephalic and Yes atraumatic Ears: hearing grossly n ormal bilaterally General nose exam: Normal external nose present Face and sinus: Yes normal facial exam Mouth: Normal oral and palatal mucosa present Eyes: General: appearance normal, both eyes and all related structures Neck: Neck: Yes normal visual inspection Chest: Chest palpation & inspection: normal palpation of entire chest wall Resp: Effort & Inspection: normal respiratory effort Auscultation: clear to auscultation bilaterally, no crackles, no rales and no rhonchi Cardio: Jugular venous distension: no JVD Rate: regular rate Rhythm: regular rhythm Heart sounds: S1 normal heart sound present and S2 normal heart sound present Peripheral pulses: Peripheral pulses 2+ throughout GI: Inspection: Yes normal to inspection Palpation (GI): Soft to palpation, nontender and no guarding Percussion: Yes normal to percussion Auscultation: normal bowel sounds : General: Yes no CVA tenderness Back/Spine/Pelvis: Back: no CVA tenderness Thoracic/Lumbar Spine: No thoracic spinal tenderness and No lumbar spinal tenderness Skin: General skin exam: no rashes or lesions noted Neuro: General: moves all extremities, no focal motor deficits and confusion Extrem: General: Yes normal to inspection, Yes no pedal edema and Yes no calf tenderness Objective Data Current Medications Generic Name Dose Route Start Last Admin Trade Name Maxxq PRN Reason Stop Dose Admin Aspirin 81 mg 03/14/20 09:00 03/15/20 09:33 Aspirin Enteric Coated 81 Mg Tablet. PO 81 mg DAILY MUNA Administration Atorvastatin Calcium 20 mg 03/14/20 21:00 03/14/20 20:09 Atorvastatin Calcium 20 Mg Tablet PO 20 mg BEDTIME MUNA Administration Carbidopa/Levodopa 1 tab 03/14/20 09:00 03/15/20 12:22 Carbidopa/Levodopa 25/100 Tablet PO 1 tab QID MUNA Administration Cyanocobalamin 500 mcg 03/14/20 09:00 03/15/20 09:33 Cyanocobalamin (Vitamin B-12) 500 Mcg Tablet PO 500 mcg DAILY MUNA Administration Donepezil HCl 20 mg 03/14/20 21:00 03/14/20 20:10 Donepezil Hcl 5 Mg Tablet PO 20 mg BEDTIME [facility]NA Administration Gabapentin 400 mg 03/14/20 21:00 03/14/20 20:09 Gabapentin 400 Mg Capsule PO 400 mg BEDTIME MUNA Administration Gabapentin 100 mg 03/14/20 21:00 03/14/20 20:10 Gabapentin 100 Mg Capsule PO 100 mg BEDTIME MUNA Administration Ceftriaxone Sodium 1 gm/ 50 mls @ 100 mls/hr 03/14/20 19:00 03/14/20 21:00 Sodium Chloride IV Infused Q24H MUNA Infusion Sodium Chloride 1,000 mls @ 75 mls/hr 03/14/20 17:00 03/15/20 09:34 Ns IVCONT 75 mls/hr .[id number] MUNA Administration Melatonin 3 mg 03/14/20 21:00 03/14/20 21:06 Melatonin 3 Mg Tablet PO 3 mg BEDTIME MUNA Administration Memantine 5 mg 03/14/20 09:00 03/15/20 09:33 Memantine Hcl 5 Mg Tablet PO 5 mg BID MUNA Administration Sertraline HCl 50 mg 03/14/20 09:00 03/15/20 09:33 Sertraline Hcl 50 Mg Tablet PO 50 mg DAILY MUNA Administration Sodium Chloride 3 ml 03/14/20 00:00 03/15/20 16:10 0.9 % Sodium Chloride Flush 3 Ml Syringe IVFLUSH 3 ml QSHIFT MUNA Administration Labs CBC & Chem 7: 03/15/20 08:26 03/15/20 08:26 Microbiology Microbiology Results: Microbiology 03/13/20 17:58 Urine clean catch - Santiago Catheter Urine Culture - Preliminary Pseudomonas species 03/13/20 19:04 Blood - Venous Blood Culture - Preliminary No growth after 24 hours. 03/13/20 19:04 Blood - Venous Blood Culture - Preliminary No growth after 24 hours. Assessment and Plan (1) Syncope: Status: Acute Assessment and Plan: 79-year-old male with a past medical history hyperlipidemia, dementia, Parkinson's disease, depression presented to the hospital with a chief complaint of unresponsive episode. Noted to have UTI. Unresponsive episode rule out seizure versus syncope CT head showed no acute findings. Neurology consulted recommended EEG EEG and echo pending PT evaluation UTI: Continue ceftriaxone urine culture preliminary Pseudomonas Parkinson's disease Continue carbidopa levodopa History of dementia Continue donepezil and memantine History of depression Continue home sertraline History of hyperlipidemia: Continue statin DVT prophylaxis: SCD boots Ambulation: Patient is mostly wheelchair-bound as per the patient's and he intermittently walks with the help of support.
[2020-03-15] MEDS: cefTRIAXone sodium 1 GM in 0.9 % Sodium Chloride 50 ML IV (19:47)
[2020-03-15] MEDS: Atorvastatin Calcium 20 MG TABLET PO (20:59)
[2020-03-15] MEDS: Gabapentin 400 MG CAPSULE PO (20:59)
[2020-03-15] MEDS: Gabapentin 100 MG CAPSULE PO (20:59)
[2020-03-15] MEDS: Melatonin 3 MG TABLET PO (20:59)
[2020-03-15] MEDS: Donepezil HCl 5 MG TABLET 20 MG PO (21:54)
[2020-03-16 03:59] VITALS: BP 143/51; PULSE 55; RESP 16; TEMP 36.6; O2SAT 97
[2020-03-16 07:55] VITALS: BP 122/73; PULSE 59; RESP 19; TEMP 36.2; O2SAT 96
[2020-03-16] MEDS: Memantine HCl 5 MG TABLET PO ×2 (08:56→21:02)
[2020-03-16] MEDS: 0.9 % Sodium Chloride Flush 3 ML SYRINGE IVFLUSH ×2 (08:56→17:36)
[2020-03-16] MEDS: Carbidopa/Levodopa 25/100 TABLET 1 TAB PO ×4 (08:56→21:02)
[2020-03-16] MEDS: Cyanocobalamin (Vitamin B-12) 500 MCG TABLET PO (08:56)
[2020-03-16] MEDS: Aspirin Enteric Coated 81 MG TABLET.DR PO (08:57)
[2020-03-16] MEDS: Sertraline HCL 50 MG TABLET PO (08:57)
[2020-03-16 12:00] VITALS: BP 138/66; PULSE 78; RESP 16; TEMP 36.7; O2SAT 96
[2020-03-16 15:57] VITALS: BP 137/60; PULSE 71; RESP 20; TEMP 36.4; O2SAT 96
--- NOTE | 2020-03-16 17:05 | HO.PM.IMPN ---
Subjective Subjective Date of Service: 03/16/20 Interval History: Patient seen and examined at bedside, Patient remains confused more sleepy today Neurologic Neurologic: Reports confusion Psychiatric Psychiatric: Reports confusion Physical Exam Vital Signs: Vital Signs: Last Vital Signs Temp 97.5 F 03/16/20 15:57 Pulse 71 03/16/20 15:57 Resp 20 03/16/20 15:57 BP 137/60 03/16/20 15:57 Pulse Ox 96 03/16/20 15:57 Body Mass Index 24.4 Const: General: comfortable, no acute distress, confusion and poor hygiene Nutritional Appearance: well nourished Orientation/consciousness: confusion HENMT: Head: Yes normocephalic and Yes atraumatic Ears: hearing grossly normal bilaterally General nose exam: Normal external nose present Face and sinus: Yes normal facial exam Mouth: Normal oral and palatal mucosa present Eyes: General: appearance normal, both eyes and all related structures Neck: Neck: Yes normal visual inspection Chest: Chest palpation & inspection: normal palpation of entire chest wall Resp: Effort & Inspection: normal respiratory effort Auscultation: clear to auscultation bilaterally, no crackles, no rales and no rhonchi Cardio: Jugular venous distension: no JVD Rate: regular rate Rhythm: regular rhythm Heart sounds: S1 normal heart sound present and S2 normal heart sound present Peripheral pulses: Peripheral pulses 2+ throughout GI: Inspection: Yes normal to inspection Palpation (GI): Soft to palpation, nontender and no guarding Percussion: Yes normal to percussion Auscultation: normal bowel sounds : General: Yes no CVA tenderness Back/Spine/Pelvis: Back: no CVA tenderness Thoracic/Lumbar Spine: No thoracic spinal tenderness and No lumbar spinal tenderness Skin: General skin exam: no rashes or lesions noted Neuro: General: moves all extremities, no focal motor deficits and confusion Extrem: General: Yes normal to inspection, Yes no pedal edema and Yes no calf tenderness Objective Data Current Medications Generic Name Dose Route Start Last Admin Trade Name Maxxq PRN Reason Stop Dose Admin Aspirin 81 mg 03/14/20 09:00 03/16/20 08:57 Aspirin Enteric Coated 81 Mg Tablet. PO 81 mg DAILY MUNA Administration Atorvastatin Calcium 20 mg 03/14/20 21:00 03/15/20 20:59 Atorvastatin Calcium 20 Mg Tablet PO 20 mg BEDTIME MUNA Administration Carbidopa/Levodopa 1 tab 03/14/20 09:00 03/16/20 14:11 Carbidopa/Levodopa 25/100 Tablet PO 1 tab QID MUNA Administration Cyanocobalamin 500 mcg 03/14/20 09:00 03/16/20 08:56 Cyanocobalamin (Vitamin B-12) 500 Mcg Tablet PO 500 mcg DAILY MUNA Administration Donepezil HCl 20 mg 03/14/20 21:00 03/15/20 21:54 Donepezil Hcl 5 Mg Tablet PO 20 mg BEDTIME MUNA Administration Gabapentin 400 mg 03/14/20 21:00 03/15/20 20:59 Gabapentin 400 Mg Capsule PO 400 mg BEDTIME MUNA Administration Gabapentin 100 mg 03/14/20 21:00 03/15/20 20:59 Gabapentin 100 Mg Capsule PO 100 mg BEDTIME [facility]NA Administration Ceftriaxone Sodium 1 gm/ 50 mls @ 100 mls/hr 03/14/20 19:00 03/15/20 20:32 Sodium Chloride IV Infused Q24H MUNA Infusion Sodium Chloride 1,000 mls @ 75 mls/hr 03/14/20 17:00 03/16/20 10:04 Ns IVCONT Infused .[id number] MUNA Infusion Melatonin 3 mg 03/14/20 21:00 03/15/20 20:59 Melatonin 3 Mg Tablet PO 3 mg BEDTIME MUNA Administration Memantine 5 mg 03/14/20 09:00 03/16/20 08:56 Memantine Hcl 5 Mg Tablet PO 5 mg BID MUNA Administration Sertraline HCl 50 mg 03/14/20 09:00 03/16/20 08:57 Sertraline Hcl 50 Mg Tablet PO 50 mg DAILY MUNA Administration Sodium Chloride 3 ml 03/14/20 00:00 03/16/20 08:56 0.9 % Sodium Chloride Flush 3 Ml Syringe IVFLUSH 3 ml QSHIFT MUNA Administration Labs CBC & Chem 7: 03/15/20 08:26 03/15/20 08:26 Microbiology Microbiology Results: Microbiology 03/13/20 17:58 Urine clean catch - Santiago Catheter Urine Culture - Final Pseudomonas aeruginosa 03/13/20 19:04 Blood - Venous Blood Culture - Preliminary No growth after 48 hours. 03/13/20 19:04 Blood - Venous Blood Culture - Preliminary No growth after 48 hours. Assessment and Plan (1) Syncope: Status: Acute Assessment and Plan: 79-year-old male with a past medical history hyperlipidemia, dementia, Parkinson's disease, depression presented to the hospital with a chief complaint of unresponsive episode. Noted to have UTI. Unresponsive episode rule out seizure versus syncope CT head showed no acute findings. Neurology consulted recommended EEG EEG done preliminary no acute abnormality echocardiogram done shows EF 70% PT evaluated recommended 24 x 7 care UTI: Continue ceftriaxone urine culture preliminary Pseudomonas sensitivity pending patient more sleepy today monitor mental status CT head on admission shows no acute change Parkinson's disease Continue carbidopa levodopa History of dementia Continue donepezil and memantine History of depression Continue home sertraline History of hyperlipidemia: Continue statin DVT prophylaxis: SCD boots Ambulation: Patient is mostly wheelchair-bound as per the patient's and he intermittently walks with the help of support. likely discharge tomorrow if mental status improved
[2020-03-16] MEDS: cefTRIAXone sodium 1 GM in 0.9 % Sodium Chloride 50 ML IV (17:35)
[2020-03-16 19:18] VITALS: BP 136/74; PULSE 98; RESP 18; TEMP 36.6; O2SAT 95
[2020-03-16] MEDS: Gabapentin 400 MG CAPSULE PO (20:52)
[2020-03-16] MEDS: Melatonin 3 MG TABLET PO (20:52)
[2020-03-16] MEDS: Gabapentin 100 MG CAPSULE PO (20:52)
[2020-03-16] MEDS: Atorvastatin Calcium 20 MG TABLET PO (20:52)
[2020-03-16] MEDS: Donepezil HCl 5 MG TABLET 20 MG PO (21:02)
[2020-03-16] MEDS: 0.9 % Sodium Chloride 1,000 ML 75 ML IVCONT (21:03)
[2020-03-16 23:37] VITALS: BP 120/60; PULSE 67; RESP 18; TEMP 36.9; O2SAT 93
[2020-03-17 03:52] VITALS: BP 138/61; PULSE 94; RESP 18; TEMP 37.1; O2SAT 94
[2020-03-17 08:00] VITALS: BP 136/68; PULSE 103; RESP 18; TEMP 36.3; O2SAT 94
[2020-03-17] MEDS: 0.9 % Sodium Chloride Flush 3 ML SYRINGE IVFLUSH (08:51)
[2020-03-17] MEDS: Carbidopa/Levodopa 25/100 TABLET 1 TAB PO ×2 (08:51→13:03)
[2020-03-17] MEDS: Cyanocobalamin (Vitamin B-12) 500 MCG TABLET PO (08:52)
[2020-03-17] MEDS: Aspirin Enteric Coated 81 MG TABLET.DR PO (08:52)
[2020-03-17] MEDS: Sertraline HCL 50 MG TABLET PO (08:52)
[2020-03-17] MEDS: Memantine HCl 5 MG TABLET PO (08:52)
--- NOTE | 2020-03-17 09:48 | MHC.CM.PN ---
NURSE CARE MANAGEMENT NOTES ELECTRONIC MEDICAL RECORD REVIEWED ALONG WITH CASE DISCUSSED WITH STAFF NURSE AND HOSPITALIST . 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 THEY HAVE RAISED TOILET SEAT AND SHOWER CHAIR . T\ SHE IS AWARE THAT PATIENT IS ANTICIPATING T BE DISCHARGED HOME TODAY AND WILL REQUIRE AMBULANCE TRANSFER. DISCUSSED VARIOUS VNA AGENCIES AND THEY CHOSE THE [facility] HE HAS HAD THEM IN THE PAST. DISCHARGE PLAN HOME WITH NEW REFERRAL TO THE [facility] FOR NURSING AND ASSESS FOR HOME PHYSICAL THERAPY PCP DR JUAN CARLOS DIAZ THEY WILL CALL FOR POST HOSPITAL DISCHARGE FOLLOW UP [facility]ACY [facility] TRANSPORTATION ACTION BLS
--- NOTE | 2020-03-17 10:55 | P.F2F_ITS ---
Service Date Service Date: 03/17/20 Reasons for Services Reason for detention: medication management Reason for physical therapy: home safety and mobility and gait/transfer training Homebound: Leaving the home is medically contraindicated at this time without the asist of a device and/or another person due th the listed conditions above and below. Reason homebound: unsteady gait / fall risk and bedbound/chairbound Certification: Based on the above findings, I certify that this patient is confined to the home and needs intermittent detention care, physical therapy and/or speech therapy, or continues to need occupational therapy. The patient is under my care, and I have initiated the establishment of the plan of care. The patient will be followed by a physician who will periodically review the plan of care.
--- NOTE | 2020-03-17 10:55 | PM.DS ---
DS: Providers Provider Date of Service: 03/18/20 Date of admission: 03/13/20 21:16 Primary care physician: Unknown Physician Consults: 03/13/20 21:21 Consult to Neurology Routine Consulting Provider: [facility] Reason for consultation: Syncope DS: Diagnosis Discharge Diagnosis (1) Syncope: Status: Acute DS: Medications Discharge Medications Home Medications: Home Medications Medication Instructions Recorded Confirmed B12 500 mg PO DAILY 03/13/20 03/13/20 aspirin 81 mg PO DAILY 03/13/20 03/13/20 atorvastatin 20 mg PO BEDTIME 03/13/20 03/13/20 carbidopa-levodopa 1 tab PO QID 03/13/20 03/13/20 donepezil 20 mg PO BEDTIME 03/13/20 03/13/20 gabapentin 500 mg PO BEDTIME 03/13/20 03/13/20 melatonin 3 mg PO BEDTIME 03/13/20 03/13/20 memantine 5 mg PO BID 03/13/20 03/13/20 sertraline 1 tab PO DAILY 03/13/20 03/13/20 sertraline 50 mg PO DAILY 03/13/20 03/13/20 Previous Rx's Medication Instructions Recorded cefuroxime axetil 250 mg PO BID 7 Days #14 tab 03/16/20 DS: Summary Hospital Course Hospital Course: HPI [age] old male with a past medical history of, dementia, Parkinson's disease psoriasis history of calculi, remote history of syncope, presented the hospital today with a chief complaint of unresponsive episode Most of the history obtained from the patient's and son. Family reported that patient was good until yesterday and today he had increased generalized weakness and when they tried to take him to the bathroom for bowel movement patient had an episode of brief unresponsiveness he was drooling from his mouth eyes were rolling back; had baseline body shakes from his Parkinson. Denied any fever chills. Mentioned that patient usually oriented to self. Family denies any fall Denies any chest pain palpitations lightheadedness or dizziness. Denies any nausea vomiting or diarrhea. Denies any focal weakness. Review of all other systems is negative except mentioned above ER course: Per ER team patient exam was nonfocal; muscle could neck exam was benign; CT head showed no acute findings. EKG was nonischemic. Troponin was negative. Hospital course 79-year-old male admitted with episode of syncope admitted to telemetry , No arrhythmia was found patient was seen by Neurology recommended EEG, EEG was shows generalized slowing , echocardiogram was done shows EF is around 70%, syncope was likely vasovagal, patient was also treated for UTI , urine culture grew Pseudomonas , patient received Rocephin and switched to p.o. Ceftin on discharge patient was stable discharged home with visiting nurse with p.o. Ceftin Time Spent with Patient Time attestation: Total time spent providing and/or coordinating discharge services: Discharge coordination time: Greater than 30 minutes Physical Exam Vital Signs: Vital Signs: Last Vital Signs Temp 97.4 F 03/17/20 08:00 Pulse 103 H 03/17/20 08:00 Resp 18 03/17/20 08:00 BP 136/68 03/17/20 08:00 Pulse Ox 94 03/17/20 08:00 Body Mass Index 24.4 DS: Data Data Completed and Pending Labs on day of discharge: Laboratory Tests 03/13/20 03/13/20 03/13/20 17:15 17:45 17:45 WBC 4.8 RBC 3.18 L Hgb 11.5 L Hct 35.3 L MCV 111.0 H MCH 36.2 H MCHC 32.6 RDW 15.6 Plt Count 533 H MPV 10.4 Immature Gran % (Auto) 0.2 Neut % (Auto) 73.0 Lymph % (Auto) 18.2 L Lynn % (Auto) 7.3 Eos % (Auto) 1.3 Baso % (Auto) 0.0 Lymph # (Auto) 0.9 L Lynn # (Auto) 0.4 Eos # (Auto) 0.1 Baso # (Auto) 0.0 Abs Immat Gran (auto) 0.01 Absolute Neuts (auto) 3.5 Absolute Nucleated RBC 0.000 Nucleated RBC % (auto) 0.0 Smear Path Review SEE NOTE PT 13.5 H INR 1.1 APTT 28.2 Sodium Potassium Chloride Carbon Dioxide Anion Gap BUN Creatinine Estim Creat Clear Calc Estimated GFR POC Glucose 142 H Random Glucose Lactic Acid Calcium Total Bilirubin Direct Bilirubin AST ALT Alkaline Phosphatase Troponin I High Sens Total Protein Albumin Urine Color Urine Appearance Urine pH Ur Specific [place] Urine Protein Urine Glucose (UA) Urine Ketones Urine Blood Urine Nitrite Ur Leukocyte Esterase Urine RBC Urine WBC Ur Squamous Epith Cells Urine Bacteria Urine Mucus COVID-19 ([facility]) COVID-19 Clin Com 03/13/20 03/13/20 03/13/20 17:45 17:45 17:45 WBC RBC Hgb Hct MCV MCH MCHC RDW Plt Count MPV Immature Gran % (Auto) Neut % (Auto) Lymph % (Auto) Lynn % (Auto) Eos % (Auto) Baso % (Auto) Lymph # (Auto) Lynn # (Auto) Eos # (Auto) Baso # (Auto) Abs Immat Gran (auto) Absolute Neuts (auto) Absolute Nucleated RBC Nucleated RBC % (auto) Smear Path Review PT INR APTT Sodium 141 Potassium 4.7 Chloride 104 Carbon Dioxide 26 Anion Gap 16 BUN 19 H Creatinine 0.97 Estim Creat Clear Calc 62.7 Estimated GFR > 60 POC Glucose Random Glucose 141 H Lactic Acid Calcium 8.1 L Total Bilirubin 0.4 Direct Bilirubin 0.2 AST 21 ALT 16 Alkaline Phosphatase 113 Troponin I High Sens < 3.5 Total Protein 6.2 L Albumin 3.7 Urine Color Urine Appearance Urine pH Ur Specific [place] Urine Protein Urine Glucose (UA) Urine Ketones Urine Blood Urine Nitrite Ur Leukocyte Esterase Urine RBC Urine WBC Ur Squamous Epith Cells Urine Bacteria Urine Mucus COVID-19 ([facility]IE) Negative COVID-19 Clin Com See Note 03/13/20 03/13/20 03/13/20 17:59 19:04 22:14 WBC RBC Hgb Hct MCV MCH MCHC RDW Plt Count MPV Immature Gran % (Auto) Neut % (Auto) Lymph % (Auto) Lynn % (Auto) Eos % (Auto) Baso % (Auto) Lymph # (Auto) Lynn # (Auto) Eos # (Auto) Baso # (Auto) Abs Immat Gran (auto) Absolute Neuts (auto) Absolute Nucleated RBC Nucleated RBC % (auto) Smear Path Review PT INR APTT Sodium Potassium Chloride Carbon Dioxide Anion Gap BUN Creatinine Estim Creat Clear Calc Estimated GFR POC Glucose Random Glucose Lactic Acid 1.6 Calcium Total Bilirubin Direct Bilirubin AST ALT Alkaline Phosphatase Troponin I High Sens < 3.5 Total Protein Albumin Urine Color YELLOW Urine Appearance CLOUDY Urine pH 6.0 Ur Specific [place] >= 1.030 H Urine Protein 2+ H Urine Glucose (UA) NEG Urine Ketones 5 Urine Blood TRACE Urine Nitrite POS H Ur Leukocyte Esterase TRACE H Urine RBC 0-2 Urine WBC 30-49 H Ur Squamous Epith Cells 1+ Urine Bacteria 1+ Urine Mucus 3+ COVID-19 ([facility]) COVID-19 Clin Com 03/14/20 03/14/20 03/15/20 07:14 07:15 08:26 WBC 5.3 4.1 L RBC 3.14 L 2.82 L Hgb 11.2 L 10.2 L Hct 34.3 L 31.4 L MCV 109.2 H 111.3 H MCH 35.7 H 36.2 H MCHC 32.7 32.5 RDW 15.7 15.9 Plt Count 468 H 458 H MPV 10.5 10.6 Immature Gran % (Auto) 0.4 0.2 Neut % (Auto) 69.6 70.7 Lymph % (Auto) 20.4 20.5 Lynn % (Auto) 8.6 7.6 Eos % (Auto) 0.6 1.0 Baso % (Auto) 0.4 0.0 Lymph # (Auto) 1.1 L 0.8 L Lynn # (Auto) 0.5 0.3 Eos # (Auto) 0.0 0.0 Baso # (Auto) 0.0 0.0 Abs Immat Gran (auto) 0.02 0.01 Absolute Neuts (auto) 3.7 2.9 Absolute Nucleated RBC 0.000 0.000 Nucleated RBC % (auto) 0.0 0.0 Smear Path Review PT INR APTT Sodium 142 Potassium 4.5 Chloride 107 Carbon Dioxide 26 Anion Gap 14 BUN 14 Creatinine 0.72 Estim Creat Clear Calc 84.5 Estimated GFR > 60 POC Glucose Random Glucose 105 Lactic Acid Calcium 8.2 L Total Bilirubin Direct Bilirubin AST ALT Alkaline Phosphatase Troponin I High Sens Total Protein Albumin Urine Color Urine Appearance Urine pH Ur Specific [place] Urine Protein Urine Glucose (UA) Urine Ketones Urine Blood Urine Nitrite Ur Leukocyte Esterase Urine RBC Urine WBC Ur Squamous Epith Cells Urine Bacteria Urine Mucus COVID-19 ([facility]) COVID-19 Clin Com 03/15/20 08:26 WBC RBC Hgb Hct MCV MCH MCHC RDW Plt Count MPV Immature Gran % (Auto) Neut % (Auto) Lymph % (Auto) Lynn % (Auto) Eos % (Auto) Baso % (Auto) Lymph # (Auto) Lynn # (Auto) Eos # (Auto) Baso # (Auto) Abs Immat Gran (auto) Absolute Neuts (auto) Absolute Nucleated RBC Nucleated RBC % (auto) Smear Path Review PT INR APTT Sodium 140 Potassium 5.0 Chloride 105 Carbon Dioxide 27 Anion Gap 13 BUN 15 Creatinine 0.75 Estim Creat Clear Calc 81.1 Estimated GFR > 60 POC Glucose Random Glucose 106 Lactic Acid Calcium 8.4 Total Bilirubin Direct Bilirubin AST ALT Alkaline Phosphatase Troponin I High Sens Total Protein Albumin Urine Color Urine Appearance Urine pH Ur Specific [place] Urine Protein Urine Glucose (UA) Urine Ketones Urine Blood Urine Nitrite Ur Leukocyte Esterase Urine RBC Urine WBC Ur Squamous Epith Cells Urine Bacteria Urine Mucus COVID-19 ([facility]) COVID-19 Clin Com Preliminary micro results at discharge 03/13/20 19:04 Blood Culture - Preliminary Blood - Venous No growth after 48 hours. 03/13/20 19:04 Blood Culture - Preliminary Blood - Venous No growth after 48 hours. Discharge Plan Discharge Anticipated Discharge Date/Time: 03/16/20 11:22 Patient Disposition: Home Health Service Referrals: [facility] [Outside] Physician,Unknown [Primary Care Provider] - Discharge Medications: New cefuroxime axetil 250 mg tablet 250 mg PO BID 7 Days Qty: 14 RF: 0 Continued B12 500 mg PO DAILY RF: 0 atorvastatin 20 mg Tablet 20 mg PO BEDTIME RF: 0 donepezil 10 mg Tablet 20 mg PO BEDTIME RF: 0 aspirin 81 mg Tablet 81 mg PO DAILY RF: 0 carbidopa-levodopa 25-100 mg Tablet 1 tab PO QID RF: 0 sertraline 50 mg tablet 1 tab PO DAILY RF: 0 sertraline 50 mg Tablet 50 mg PO DAILY RF: 0 memantine 5 mg Tablet 5 mg PO BID RF: 0 melatonin 3 mg Capsule 3 mg PO BEDTIME RF: 0 gabapentin 500 mg PO BEDTIME RF: 0 Discharge Orders: Discharge Order (Routine); Ordered 03/16/20 Ordered By: John Carlos Diet: advance to usual diet Activity on Discharge: As tolerated Stand Alone Forms: Patient Portal Discharge page Care Plan Goals: see above Health Concerns: see above Plan of Treatment: see above Discharge Date/Time: 03/17/20 13:15
[2020-03-17 12:00] VITALS: BP 166/53; PULSE 74; RESP 18; TEMP 36.4; O2SAT 94
== END 2020-03-17 13:15 | disposition home health service (06) ==
LOC: HO.ED 21:55 → HO.EDOVER 03-14 07:25 → HO.S3 03-14 16:37
PROVIDERS: Admitting Provider Hospitalist; Emergency Provider Internal Medicine; Visit Provider Internal Medicine
DX: R55 Syncope and collapse (principal); G31.83 Neurocognitive disorder with Lewy bodies; F02.80 Dementia in other diseases classified elsewhere, unspecified severity, without behavioral disturbance, psychotic disturbance, mood disturbance, and anxiety; R26.81 Unsteadiness on feet; E78.5 Hyperlipidemia, unspecified; N30.00 Acute cystitis without hematuria; R94.31 Abnormal electrocardiogram [ECG] [EKG]; Z20.822 Contact with and (suspected) exposure to COVID-19; Z79.899 Other long term (current) drug therapy
CPT/HCPCS: 36415; 70450; 71045; 80048; 80076; 81001; 81003; 82947; 83605; 84484; 85025; 85060; 85610; 85730; 87040; 87086; 87088; 87186; 87635; 92610; 93005; 93306; 95816; 96361; 96365; 96366; 97163; 97167; 97530; 99218; 99285; J0696